=== PATIENT | female | born 1995 | race Caucasian/White ===

== ENCOUNTER 2022-05-09 17:01 | Emergency (ER) | payer SELFPAY ==
--- NOTE | 2022-05-09 17:03 | ERPHSYRPT ---
- History of Present Illness Time Seen by Provider: 05/09/22 17:03 Source: patient Exam Limitations: no limitations Physician History: This is a 27-year-old obese white female patient who saw her dog in the street so she ran off the porch to go grab her dog and fell off the porch twisting her foot and ankle on the left side she can bear weight but it hurts to do so. There is left foot swelling. Method of Injury: fell Occurred: just prior to arrival Quality: constant Severity of Pain-Max: mild (To moderate) Severity of Pain-Current: mild Lower Extremities Pain: foot: left, ankle: left Modifying Factors: Improves With: movement Associated Symptoms: other (Hurts to bear weight but can do so.) Allergies/Adverse Reactions: No Known Drug Allergies Allergy (Unverified 05/09/22 17:33) Home Medications: No Reportable Medications [No Reported Medications] 05/09/22 [History] Travel Risk - International Travel Have you traveled outside of the country in past 3 weeks: No - Coronavirus Screening Are you exhibiting any of the following symptoms?: No Close contact with a COVID-19 positive Pt in past 14-21 Days: No - Review of Systems Constitutional: No Symptoms Eyes: No Symptoms Ears, Nose, & Throat: No Symptoms Respiratory: No Symptoms Cardiac: No Symptoms Abdominal/Gastrointestinal: No Symptoms Genitourinary Symptoms: No Symptoms Musculoskeletal: Fall, Injury Skin: No Symptoms Neurological: No Symptoms Psychological: No Symptoms Endocrine: No Symptoms Hematologic/Lymphatic: No Symptoms Immunological/Allergic: No Symptoms All Other Systems: Reviewed and Negative - Past Medical History Pertinent Past Medical History: No - Past Surgical History Past Surgical History: No - Nursing Vital Signs Nursing Vital Signs: Initial Vital Signs Temperature 98.9 F 05/09/22 17:35 Pulse Rate 100 H 05/09/22 17:35 Respiratory Rate 18 05/09/22 17:35 Blood Pressure 153/93 05/09/22 17:35 O2 Sat by Pulse Oximetry 99 05/09/22 17:35 Pain Scale Pain Intensity 8 - Physical Exam General Appearance: no apparent distress, alert, anxiety, obese Eyes, Ears, Nose, Throat Exam: normal ENT inspection, moist mucous membranes Neck Exam: normal inspection, non-tender, supple, full range of motion Cardiovascular/Respiratory Exam: chest non-tender, no respiratory distress Gastrointestinal/Abdominal Exam: non-tender Back Exam: normal inspection, normal range of motion, No CVA tenderness, No vertebral tenderness Hips Exam: bilateral: non-tender, normal inspection, normal range of motion, no evidence of injury Legs Exam: bilateral leg: non-tender, normal inspection, normal range of motion, no evidence of injury Knees Exam: bilateral knee: non-tender, normal inspection, normal range of motion, no evidence of injury Ankle Exam: right ankle: non-tender, left ankle: soft tissue tenderness (Distal), bilateral ankle: normal inspection, normal range of motion, no evidence of injury Foot Exam: right foot: non-tender, normal inspection, no evidence of injury, left foot: soft tissue tenderness, swelling, bilateral foot: normal range of motion Neuro/Tendon Exam: normal sensation, normal motor functions, normal tendon functions, responds to pain, no evidence tendon injury Mental Status Exam: alert, oriented x 3, cooperative Skin Exam: normal color, warm, dry SpO2 Interpretation: normal O2 Delivery: Room Air - Course Nursing assessment & vital signs reviewed: Yes Ordered Tests: Active Orders 24 hr Category Date Time Status ANKLE (3 VIEWS) Stat Exams 05/09/22 17:42 Taken FOOT (MINIMUM 3 VIEWS) Stat Exams 05/09/22 17:42 Taken - Progress Progress: unchanged Progress Note: 05/09/22 18:14 X-ray of left ankle shows no acute fracture or dislocation. This study was interpreted by me. X-ray of left foot shows no acute fracture or dislocation. This study was interpreted by me. This patient's medical issue is of low complexity. The level of complexity and the work-up was determined by review of the patient's past medical history, history of present illness, review of the patient's medication list and review of the patient's drug allergy list as well as physical findings on examination. The patient only requires an x-ray of her left foot and left ankle. I reviewed and interpreted these 2 x-rays. There is no evidence of any acute fracture or dislocation. Patient be discharged to home with an Alden wrap in place and instructed to use Tylenol and ibuprofen for pain control and also to use an ice pack. She is to follow-up with her primary care provider, Dr. Rodriguez (podiatry), or the [facility] orthopedic clinic if symptoms persist beyond 3 days. Counseled pt/family regarding: diagnosis, need for follow-up, rad results Medical Desision Making - Discussion of managment Agreed on:: Treatment plan, need for follow-up - Diagnostic Testing Diagnostic test were ordered, analyzed, and reviewed by me: Yes Radiological Interpretation: Interpreted by me - Risk of complications Low Risk: Low risk of morbidity from additional dx testing or treatment - Departure Departure Disposition: Home Clinical Impression: Left ankle sprain, Sprain of left foot Condition: Stable Critical Care Time: No Additional Instructions: Ice pack to left foot and ankle 3 times a day for the next 48 hours. Use Tylenol and ibuprofen for pain control. Wear the Alden wrap for pain control. If your symptoms persist beyond 72 hours, may follow-up with your primary care physician, Dr. Rodriguez (podiatry at [facility]), or [facility] orthopedic clinic. It is a walk-in clinic open Saturday through Saturday 8 AM to 10 AM. You do not need an appointment.
[2022-05-09 17:36] VITALS: BP 153/93; PULSE 100; O2SAT 99
--- NOTE | 2022-05-10 08:32 | XRAY ---
Indication: Pain following fall. Comparison: None 3 view left ankle demonstrates small plantar heel spur and anterior medial soft tissue swelling. No other bony, articular, or soft tissue abnormalities.
--- NOTE | 2022-05-10 08:32 | XRAY ---
Indication: Pain following fall. Comparison: None 3 nonweightbearing views left foot demonstrates small plantar heel spur and anterior medial ankle soft tissue swelling. No other bony, articular, or soft tissue abnormalities.
== END 2022-05-09 18:29 | disposition home or self-care (01) ==
LOC: ED 17:01
DX: S93.402A Sprain of unspecified ligament of left ankle, initial encounter (principal); S93.602A Unspecified sprain of left foot, initial encounter; W17.89XA Other fall from one level to another, initial encounter; Y93.02 Activity, running; Y92.007 Garden or yard of unspecified non-institutional (private) residence as the place of occurrence of the external cause
CPT/HCPCS: 73610; 73630; 99283